=== PATIENT | female | born 1990 | race Asian ===

== ENCOUNTER 2017-12-19 23:02 | Emergency (ER) | payer OTHER ==
[~2017-12-19] VITALS: Ht 160 cm; Wt 85.6 kg
[2017-12-19 23:07] VITALS: TEMP 37.2; Ht 160 cm; Wt 85.6 kg
[2017-12-19] MEDS ORDERED: GELATIN SPONGE 12-7MM EXT ONE (23:30)
--- NOTE | 2017-12-19 23:31 | EMERGENCY ROOM VISIT NOTE ---
History Report prepared by Svitlana: Brandon Soriano Under the Supervision of: Dr. Juanjose Parmar M.D. First contact with patient: 23:09 Chief Complaint: LACERATION/CUT (SUT/DERMABOND) Stated Complaint: CUT FINGERTIP , L HAND, 5TH DIGIT Nursing Triage Summary: left pinky laceration History of Present Illness The patient is a 27 year old female who presents to the Emergency Room with complaints of persistent left finger pain that began 1.5 hours ago. She state that she was chopping vegetables and cut through her fifth digit of her left hand. She currently rates her pain a 4/10 in severity. She states her vaccinations are up-to-date. She denies any underlying medical problems. NKDA. Source of History: patient Onset: 1.5 hours ago Position: finger(s) (left fifth) Symptom Intensity: 4/10 Timing: other (persistent) Review of Systems See HPI for pertinent positives & negatives. A total of 6 systems reviewed and were otherwise negative. Past Medical & Surgical Medical Problems: (1) No Known Active Medical Problems Family History Hypertension Social History Smoking Status: Never Smoker Smokeless Tobacco Use: No Alcohol Use: none Drug Use: none Marital Status: single Housing Status: lives with roommate Occupation Status: [employer] student Current/Historical Medications Scheduled Cephalexin Monohydrate (Keflex), 500 MG PO TID Physical Exam Vital Signs Date Time Temp Pulse Resp B/P (MAP) Pulse Ox O2 Delivery O2 Flow Rate FiO2 12/20/17 00:02 91 20 149/82 98 12/19/17 23:07 37.2 100 18 155/93 97 Room Air Physical Exam GENERAL: Patient is well appearing and in no acute distress. EXTREMITIES: Normal motion all extremities, no cyanosis, no edema. A 0.75 x 0.5 cm avulsion to the tip of the fifth digit of left hand, which sliced part of fingernail off, mild venous oozing. NEUROLOGIC: Alert and oriented, no acute motor or sensory deficits, no focal weakness, cranial nerves grossly intact. SKIN: No rash, no jaundice, no diaphoresis. Medical Decision & Procedures Medications Administered Medications (Trade) Dose Ordered Sig/Benjamin Route Start Time Stop Time Status Last Admin Dose Admin Cephalexin Monohydrate (Keflex Cap) 500 mg NOW ONCE PO 12/19/17 23:45 12/19/17 23:46 DC 12/19/17 23:45 500 MG Procedure I dressed her laceration with gel foam and wrapped it. Discussed wound care. ED Course 2312: The patient was evaluated in room C12B. A complete history and physical exam was performed. 2329: I reassessed the patient at this time. I treated the laceration. Please see procedural note. She is feeling better and resting comfortably. I discussed the results and treatment plan with the patient. I answered all pertaining questions that she had. She expressed understanding and verbalized agreement. The patient will be discharged home. Medical Decision 27 yr old right handed female with UTD tetanus who cut tip left 5th digit avulsing it just below dermis and through tip of nail. No way to suture closed thus will heal by secondary. Mild bleeding controlled with pressure. Copiously cleansed area with betadine, nss, and then placed gel foam and wrapped it. Tolerated well. Given open wound and dressing will place on brief course Keflex. Discussed wound care. Discussed HTN and that she should follow up with PCP for recheck. Medication Reconcilliation Current Medication List: was personally reviewed by me Blood Pressure Screening Patient's blood pressure: Elevated blood pressure Blood pressure disposition: Referred to PCP Impression Primary Impression: Avulsion, finger tip Scribe Attestation The scribe's documentation has been prepared under my direction and personally reviewed by me in its entirety. I confirm that the note above accurately reflects all work, treatment, procedures, and medical decision making performed by me. Departure Information Dispostion Home / Self-Care Prescriptions Cephalexin Monohydrate (Keflex) 500 Mg Cap 500 MG PO TID for 5 Days, #15 CAP Prov: Juanjose Parmar M.D. 12/19/17 Referrals No Doctor, Assigned (PCP) Forms HOME CARE DOCUMENTATION FORM, IMPORTANT VISIT INFORMATION Patient Instructions ED Avulsion Dermal, My [facility] Problem Qualifiers Primary Impression: Avulsion, finger tip Encounter type: initial encounter Qualified Codes: S61.209A - Unspecified open wound of unspecified finger without damage to nail, initial encounter
[2017-12-19] MEDS ORDERED: CEPH500C PO (23:35)
[2017-12-19] MEDS ORDERED: CEPHALEXIN MONOHYDRATE 250 MG CAP PO ONE (23:45)
[2017-12-20 00:02] VITALS: BP 149/82; PULSE 91; O2SAT 98
== END 2017-12-20 00:02 | disposition home or self-care (01) ==
LOC: C.EDB 23:05 → C.EDC 12-20 00:02
DX: S61.317A Laceration without foreign body of left little finger with damage to nail, initial encounter (principal); W45.8XXA Other foreign body or object entering through skin, initial encounter; Y93.G1 Activity, food preparation and clean up; R03.0 Elevated blood-pressure reading, without diagnosis of hypertension; Z82.49 Family history of ischemic heart disease and other diseases of the circulatory system